=== PATIENT | female | born 1945 | race Asian ===

== ENCOUNTER 2016-09-25 04:19 | Inpatient (IN) | payer MEDICARE ==
[~2016-09-25] VITALS: Ht 152.4 cm; Wt 68.1 kg
[~2016-09-25 04:19] MED LIST: AMLO-511 PO; ASPI-1093 PO; ATOR40TA28 PO; B CO1CAP4 PO; CLOP75 PO; DSS100 PO; FURO40 PO; HYDR-2924 PO; INSLAN SQ; INSNOV SQ; ISOS30TA6 PO; LEVE250T55 PO; PHOSLOC PO; SODI650T PO; VITA1CAP PO
[2016-09-25 04:32] LABS: GLUCOSE,POINT OF CARE 169 MG/DL (70-110)
[2016-09-25] MEDS ORDERED: HydrALAZINE HCL 20 MG/ML VIAL IVP ONE (05:30)
[2016-09-25 05:46] LABS: BASOPHILS # (AUTO) 0.04 K/uL (0.00-0.20); BASOPHILS % (AUTO) 0.2 % (0.0-2.0); EOSINOPHILS # (AUTO) 0.12 K/uL (0.00-0.70); EOSINOPHILS % (AUTO) 0.58 % (1.0-6.0); HEMATOCRIT 33.1 % (36-46); HEMOGLOBIN 10.8 g/dL (12.0-16.0); LYMPHOCYTES # (AUTO) 1.8 K/uL (1.0-4.8); LYMPHOCYTES % (AUTO) 8.8 % (22.0-44.0); MEAN CORPUSCULAR HEMOGLOBIN 29.1 pg (26.0-34.0); MEAN CORPUSCULAR HGB CONC 32.8 G/dL (31.0-37.0); MEAN CORPUSCULAR VOLUME 89 fL (80-100); MONOCYTES % (AUTO) 4.9 % (2.0-9.0); NEUTROPHILS # (AUTO) 17.2 K/uL (1.8-7.7); PLATELET COUNT (AUTO) 170 K/uL (150-450); RED BLOOD CELL COUNT(AUTO) 3.72 MIL/uL (4.00-5.20); RED CELL DISTRIBUTION WIDTH 15.5 % (11.5-14.5); WHITE BLOOD COUNT (AUTO) 20.2 K/uL (4.5-11.0)
[2016-09-25 05:48] LABS: NEUTROPHILS % (AUTO) 85.5 % (40.0-70.0)
[2016-09-25 05:56] LABS: PROTHROMBIN TIME 10.2 SEC (9.4-11.6)
[2016-09-25 05:58] LABS: ANION GAP 12 mmol/L (8-16); CALCIUM, TOTAL 9.7 mg/dL (8.8-10.5); CARBON DIOXIDE 26 mmol/L (22-29); CHLORIDE 101 mmol/L (98-107); CREATININE 6.96 mg/dL (0.60-1.30); GLOMERULAR FILTR. RATE CALC 6 mL/min (>60); POTASSIUM 5.2 mmol/L (3.5-5.1); SODIUM SERUM 139 mmol/L (136-145); UREA NITROGEN, BLOOD 76 mg/dL (7-18)
[2016-09-25 06:04] LABS: ALANINE AMINOTRANSFERASE 22 U/L (12-78); ALBUMIN 3.6 g/dL (3.4-5.0); ASPARTATE AMINOTRANSFERASE 15 U/L (15-37); BILIRUBIN,TOTAL 0.2 mg/dL (0.1-1.0); CREATINE KINASE, TOTAL 49 U/L (26-192); TOTAL PROTEIN, SERUM 7.5 g/dL (6.4-8.2)
[2016-09-25 06:06] LABS: B-TYPE NATRIURETIC PEPTIDE 1170 pg/mL (0-100)
[2016-09-25 07:22] LABS: GLUCOSE,POINT OF CARE 171 MG/DL (70-110)
[2016-09-25] MEDS ORDERED: ACETAMINOPHEN 325 MG TABLET PO PRN (08:15)
[2016-09-25] MEDS ORDERED: DEXTROSE 50%-WATER 25 GM/50 ML SYRINGE IVP PRN (08:15)
[2016-09-25] MEDS ORDERED: BISACODYL 10 MG RECTAL RECTAL SUPPOSITORY PR PRN (08:15)
[2016-09-25] MEDS ORDERED: CloNIDine HCL 0.1 MG TABLET PO PRN (08:15)
[2016-09-25] MEDS ORDERED: ALBUTEROL SULFATE 2.5 MG/0.5 ML NEB SOLUTION NEB PRN (08:15)
[2016-09-25] MEDS: PANTOPRAZOLE SODIUM 40 MG DR TABLET PO SCH (08:18)
[2016-09-25] MEDS: VITAMIN B COMP/VIT C/FOLIC ACID CAPSULE PO SCH (08:21)
[2016-09-25] MEDS: AmLODIPine BESYLATE 10 MG TABLET PO SCH (08:21)
[2016-09-25] MEDS: LevETIRAcetam 250 MG TABLET PO SCH (08:24)
[2016-09-25] MEDS: HEPARIN SODIUM,PORCINE 5,000 UNITS/ML VIAL SQ SCH ×2 (08:26→20:30)
[2016-09-25] MEDS: INSULIN ASPART 100 UNITS/ML SQ PRN ×4 (08:27→21:41)
[2016-09-25] MEDS: ASPIRIN 81 MG CHEWABLE TABLET PO SCH (08:31)
[2016-09-25 09:03] VITALS: BP 190/83
[2016-09-25] MEDS: DOCUSATE SODIUM 100 MG CAPSULE PO SCH ×2 (10:24→20:29)
[2016-09-25 11:32] VITALS: BP 113/49
[2016-09-25] MEDS ORDERED: VANCOMYCIN HCL 1 GM/D5% WATER 200 ML IV ONE (12:45)
[2016-09-25] MEDS ORDERED: PIPERACILLIN SODIUM/TAZOBACTAM 0.75 GM in DEXTROSE 5%-WATER 50 ML IV PRN (13:15)
[2016-09-25] MEDS ORDERED: SODIUM CHLORIDE 0.9% 100 ML ONE (13:53)
[2016-09-25] MEDS: PIPERACILLIN SODIUM/TAZOBACTAM 2.25 GM in DEXTROSE 5%-WATER 50 ML IV SCH ×2 (14:16→20:30)
[2016-09-25 15:51] VITALS: BP 128/60
[2016-09-25] MEDS ORDERED: LIDOCAINE HCL/PF 1% 2 ML VIAL IM ONE (16:56)
[2016-09-25] MEDS: OxyCODONE HCL/ACETAMINOPHEN 5-325 MG TABLET PO PRN (19:30)
[2016-09-25 20:11] VITALS: BP 179/76
[2016-09-25] MEDS: ATORVASTATIN CALCIUM 20 MG TABLET PO SCH (20:29)
[2016-09-26] VITALS (7 sets, daily range): BP systolic 120–156; BP diastolic 45–63
[2016-09-26] MEDS: PIPERACILLIN SODIUM/TAZOBACTAM 2.25 GM in DEXTROSE 5%-WATER 50 ML IV SCH ×3 (05:28→20:50)
[2016-09-26] MEDS ORDERED: SODIUM CHLORIDE 0.9% 250 ML IV ONE (05:38)
[2016-09-26 06:28] LABS: BASOPHILS % (AUTO) 0.7 % (0.0-2.0); EOSINOPHILS % (AUTO) 2.4 % (1.0-6.0); HEMATOCRIT 32.5 % (36-46); HEMOGLOBIN 10.5 g/dL (12.0-16.0); LYMPHOCYTES # (AUTO) 1.9 K/uL (1.0-4.8); LYMPHOCYTES % (AUTO) 18.9 % (22.0-44.0); MEAN CORPUSCULAR HEMOGLOBIN 28.4 pg (26.0-34.0); MEAN CORPUSCULAR HGB CONC 32.3 G/dL (31.0-37.0); MEAN CORPUSCULAR VOLUME 88 fL (80-100); MONOCYTES # (AUTO) 0.8 K/uL (0.1-1.0); MONOCYTES % (AUTO) 7.8 % (2.0-9.0); NEUTROPHILS # (AUTO) 7.2 K/uL (1.8-7.7); NEUTROPHILS % (AUTO) 70.2 % (40.0-70.0); PLATELET COUNT (AUTO) 160 K/uL (150-450); RED CELL DISTRIBUTION WIDTH 15.4 % (11.5-14.5); WHITE BLOOD COUNT (AUTO) 10.3 K/uL (4.5-11.0)
[2016-09-26 06:42] LABS: CALCIUM, TOTAL 8.9 mg/dL (8.8-10.5); CREATININE 4.46 mg/dL (0.60-1.30); MAGNESIUM 1.8 mg/dL (1.80-2.40); PHOSPHORUS 4.7 mg/dL (2.5-4.9); POTASSIUM 4.5 mmol/L (3.5-5.1)
[2016-09-26 06:57] LABS: GLUCOSE,POINT OF CARE 124 MG/DL (70-110)
[2016-09-26 08:02] LABS: HEMOGLOBIN A1C 7.3 % (4.5-6.2)
[2016-09-26] MEDS ORDERED: VANCOMYCIN HCL 1 GM/D5% WATER 200 ML IV PRN (08:15)
[2016-09-26] MEDS: DOCUSATE SODIUM 100 MG CAPSULE PO SCH ×2 (08:38→20:49)
[2016-09-26] MEDS: PANTOPRAZOLE SODIUM 40 MG DR TABLET PO SCH (08:38)
[2016-09-26] MEDS: OxyCODONE HCL/ACETAMINOPHEN 5-325 MG TABLET PO PRN (08:38)
[2016-09-26] MEDS: AmLODIPine BESYLATE 10 MG TABLET PO SCH (08:38)
[2016-09-26] MEDS: HEPARIN SODIUM,PORCINE 5,000 UNITS/ML VIAL SQ SCH ×2 (08:38→20:50)
[2016-09-26] MEDS: LevETIRAcetam 250 MG TABLET PO SCH (08:38)
[2016-09-26] MEDS: VITAMIN B COMP/VIT C/FOLIC ACID CAPSULE PO SCH (08:38)
[2016-09-26] MEDS: ASPIRIN 81 MG CHEWABLE TABLET PO SCH (08:38)
[2016-09-26] MEDS ORDERED: VANCOMYCIN HCL 1 GM/D5% WATER 200 ML IV ONE (09:00)
[2016-09-26] MEDS: INSULIN ASPART 100 UNITS/ML SQ PRN ×3 (12:20→21:10)
[2016-09-26] MEDS: ATORVASTATIN CALCIUM 20 MG TABLET PO SCH (20:50)
[2016-09-27 04:22] VITALS: BP 142/56
[2016-09-27] MEDS: PIPERACILLIN SODIUM/TAZOBACTAM 2.25 GM in DEXTROSE 5%-WATER 50 ML IV SCH ×3 (05:15→21:13)
[2016-09-27 06:38] LABS: BASOPHILS # (AUTO) 0.07 K/uL (0.00-0.20); BASOPHILS % (AUTO) 0.7 % (0.0-2.0); EOSINOPHILS # (AUTO) 0.34 K/uL (0.00-0.70); EOSINOPHILS % (AUTO) 3.17 % (1.0-6.0); HEMATOCRIT 29.6 % (36-46); HEMOGLOBIN 9.6 g/dL (12.0-16.0); LYMPHOCYTES # (AUTO) 1.9 K/uL (1.0-4.8); LYMPHOCYTES % (AUTO) 17.9 % (22.0-44.0); MEAN CORPUSCULAR HEMOGLOBIN 29.2 pg (26.0-34.0); MEAN CORPUSCULAR HGB CONC 32.6 G/dL (31.0-37.0); MEAN CORPUSCULAR VOLUME 90 fL (80-100); MONOCYTES # (AUTO) 1.1 K/uL (0.1-1.0); MONOCYTES % (AUTO) 10.3 % (2.0-9.0); NEUTROPHILS # (AUTO) 7.2 K/uL (1.8-7.7); NEUTROPHILS % (AUTO) 67.9 % (40.0-70.0); PLATELET COUNT (AUTO) 156 K/uL (150-450); RED CELL DISTRIBUTION WIDTH 14.7 % (11.5-14.5); WHITE BLOOD COUNT (AUTO) 10.6 K/uL (4.5-11.0)
[2016-09-27 07:11] LABS: CALCIUM, TOTAL 8.6 mg/dL (8.8-10.5); CREATININE 6.32 mg/dL (0.60-1.30); POTASSIUM 5.3 mmol/L (3.5-5.1)
[2016-09-27 07:30] VITALS: BP 132/60
[2016-09-27] MEDS ORDERED: SODIUM CHLORIDE 0.9% 2,000 ML IV ONE (08:34)
[2016-09-27] MEDS: AmLODIPine BESYLATE 10 MG TABLET PO SCH (09:00)
[2016-09-27] MEDS: HEPARIN SODIUM,PORCINE 5,000 UNITS/ML VIAL SQ SCH ×2 (09:00→21:00)
[2016-09-27 11:47] VITALS: BP 130/66
[2016-09-27] MEDS ORDERED: MANNITOL 25%-12.5 GM/50 ML VIAL IVP PRN (12:00)
[2016-09-27] MEDS ORDERED: ALBUMIN HUMAN 25%-12.5GM/50ML IV BOTTLE IV PRN (12:00)
[2016-09-27] MEDS ORDERED: LIDOCAINE HCL/PF 1% 2 ML VIAL ID PRN (12:00)
[2016-09-27] MEDS: PANTOPRAZOLE SODIUM 40 MG DR TABLET PO SCH (12:55)
[2016-09-27] MEDS: DOCUSATE SODIUM 100 MG CAPSULE PO SCH ×2 (12:55→21:00)
[2016-09-27] MEDS: ASPIRIN 81 MG CHEWABLE TABLET PO SCH (12:55)
[2016-09-27] MEDS: VITAMIN B COMP/VIT C/FOLIC ACID CAPSULE PO SCH (12:56)
[2016-09-27] MEDS: LevETIRAcetam 250 MG TABLET PO SCH (12:56)
[2016-09-27] MEDS: INSULIN ASPART 100 UNITS/ML SQ PRN ×3 (12:58→21:06)
[2016-09-27 15:41] VITALS: BP 126/58
[2016-09-27] MEDS ORDERED: LIDOCAINE HCL/PF 1% 2 ML VIAL IM ONE (17:18)
[2016-09-27 19:57] VITALS: BP 129/52
[2016-09-27] MEDS: ATORVASTATIN CALCIUM 20 MG TABLET PO SCH (20:59)
[2016-09-28 00:33] VITALS: BP 143/44
[2016-09-28 05:16] VITALS: BP 141/49
[2016-09-28] MEDS: PIPERACILLIN SODIUM/TAZOBACTAM 2.25 GM in DEXTROSE 5%-WATER 50 ML IV SCH ×2 (06:02→12:34)
[2016-09-28] MEDS: INSULIN ASPART 100 UNITS/ML SQ PRN ×2 (06:26→12:06)
[2016-09-28 07:36] VITALS: BP 138/53
[2016-09-28] MEDS ORDERED: SODIUM POLYSTYRENE SULFONATE 15 GM/60 ML SUSPENSION BOTTLE PO ONE (08:30)
[2016-09-28] MEDS: AmLODIPine BESYLATE 10 MG TABLET PO SCH (08:38)
[2016-09-28] MEDS: LevETIRAcetam 250 MG TABLET PO SCH (08:39)
[2016-09-28] MEDS: VITAMIN B COMP/VIT C/FOLIC ACID CAPSULE PO SCH (08:39)
[2016-09-28] MEDS: HEPARIN SODIUM,PORCINE 5,000 UNITS/ML VIAL SQ SCH (08:39)
[2016-09-28] MEDS: DOCUSATE SODIUM 100 MG CAPSULE PO SCH (08:39)
[2016-09-28] MEDS: PANTOPRAZOLE SODIUM 40 MG DR TABLET PO SCH (08:39)
[2016-09-28] MEDS: ASPIRIN 81 MG CHEWABLE TABLET PO SCH (08:40)
[2016-09-28] MEDS ORDERED: LEVO250 PO (10:52)
[2016-09-28 11:26] VITALS: BP 121/42
[2016-09-28 11:38] LABS: GLUCOSE COMMENT 1 Received Meds; GLUCOSE,POINT OF CARE 204 MG/DL (70-110)
[2016-09-28 14:22] LABS: GLUCOSE,POINT OF CARE 172 MG/DL (70-110)
[2016-09-28 14:23] LABS: GLUCOSE,POINT OF CARE 172 MG/DL (70-110)
[2016-09-29 13:27] LABS: HEPATITIS Bs ANTIGEN SCREEN P Confirm. indicated (Negative)
[2016-09-30 21:48] LABS: GLUCOSE,POINT OF CARE 153 MG/DL (70-110)
[2016-09-30 21:48] LABS: GLUCOSE COMMENT 1 Received Meds; GLUCOSE,POINT OF CARE 184 MG/DL (70-110)
[2016-09-30 21:53] LABS: GLUCOSE COMMENT 1 Received Meds; GLUCOSE,POINT OF CARE 144 MG/DL (70-110)
[2016-09-30 22:12] LABS: GLUCOSE COMMENT 1 Received Meds; GLUCOSE,POINT OF CARE 180 MG/DL (70-110)
[2016-09-30 22:17] LABS: GLUCOSE,POINT OF CARE 165 MG/DL (70-110)
[2016-09-30 22:18] LABS: GLUCOSE COMMENT 1 Received Meds; GLUCOSE,POINT OF CARE 144 MG/DL (70-110)
[2016-09-30 22:18] LABS: GLUCOSE COMMENT 1 Received Meds; GLUCOSE,POINT OF CARE 140 MG/DL (70-110)
[2016-09-30 22:18] LABS: GLUCOSE COMMENT 1 Received Meds; GLUCOSE,POINT OF CARE 232 MG/DL (70-110)
== END 2016-09-28 15:15 | disposition home or self-care (01) | DRG 291 ==
LOC: EMS 04:21 → 5S 07:35
PROVIDERS: ADMIT Internal Medicine; ATTEND Internal Medicine
PROC: 5A1D60Z (ICD-10-PCS; principal; 2016-09-25)
DX: I13.2 Hypertensive heart and chronic kidney disease with heart failure and with stage 5 chronic kidney disease, or end stage renal disease (principal); J18.9 Pneumonia, unspecified organism; N18.6 End stage renal disease; E11.22 Type 2 diabetes mellitus with diabetic chronic kidney disease; J45.909 Unspecified asthma, uncomplicated; I25.10 Atherosclerotic heart disease of native coronary artery without angina pectoris; G40.909 Epilepsy, unspecified, not intractable, without status epilepticus; D72.829 Elevated white blood cell count, unspecified; E87.5 Hyperkalemia; D63.8 Anemia in other chronic diseases classified elsewhere; I50.9 Heart failure, unspecified; Z99.2 Dependence on renal dialysis; Z86.73 Personal history of transient ischemic attack (TIA), and cerebral infarction without residual deficits; Z79.4 Long term (current) use of insulin; Z79.82 Long term (current) use of aspirin; Z79.899 Other long term (current) drug therapy; Z79.01 Long term (current) use of anticoagulants
CPT/HCPCS: 82962; 83036; 83735; 84100; 86709; 87040; 87081; 87340; 90935; 93005; 96374; 97162; 97166; 97530; 99285; J0360; J1644; J1815; J2543; J3370; J3490; J7030; J7050; J7060

== ENCOUNTER → 2017-03-27 | Outpatient (CLI) | payer MEDICARE, OTHER ==
[~2017-03-27] MED LIST changes: -ASPI-1093 PO; +ASPI-1182 PO; -FURO40 PO; +LEVO250 PO
[2017-03-27 16:19] LABS: HEMOGLOBIN A1C 5.7 % (4.5-6.2)
[2017-03-27 16:21] LABS: BASOPHILS # (AUTO) 0.04 K/uL (0.00-0.20); BASOPHILS % (AUTO) 0.7 % (0.0-2.0); EOSINOPHILS # (AUTO) 0.15 K/uL (0.00-0.70); EOSINOPHILS % (AUTO) 2.29 % (1.0-6.0); HEMATOCRIT 38.2 % (36-46); HEMOGLOBIN 12.4 g/dL (12.0-16.0); LYMPHOCYTES # (AUTO) 1.1 K/uL (1.0-4.8); LYMPHOCYTES % (AUTO) 16.4 % (22.0-44.0); MEAN CORPUSCULAR HEMOGLOBIN 29.4 pg (26.0-34.0); MEAN CORPUSCULAR HGB CONC 32.3 G/dL (31.0-37.0); MEAN CORPUSCULAR VOLUME 91 fL (80-100); MONOCYTES # (AUTO) 0.6 K/uL (0.1-1.0); MONOCYTES % (AUTO) 8.9 % (2.0-9.0); NEUTROPHILS # (AUTO) 4.8 K/uL (1.8-7.7); NEUTROPHILS % (AUTO) 71.7 % (40.0-70.0); PLATELET COUNT (AUTO) 179 K/uL (150-450); RED CELL DISTRIBUTION WIDTH 17.7 % (11.5-14.5)
[2017-03-27 16:36] LABS: ALBUMIN 3.6 g/dL (3.4-5.0); BILIRUBIN,TOTAL 0.3 mg/dL (0.1-1.0); CALCIUM, TOTAL 8.4 mg/dL (8.8-10.5); CHOL/HDL RATIO 2.3 (3.9-5.7); CREATININE 6.14 mg/dL (0.60-1.30); POTASSIUM 5.5 mmol/L (3.5-5.1); THYROID STIMULATING HORMONE 1.05 uIU/mL (0.36-3.74); TOTAL PROTEIN, SERUM 7.1 g/dL (6.4-8.2)
== END | disposition home or self-care (01) ==
LOC: LABPV 15:16
PROVIDERS: ATTEND Internal Medicine
DX: E11.69 Type 2 diabetes mellitus with other specified complication (principal); E78.5 Hyperlipidemia, unspecified; I51.7 Cardiomegaly; J98.4 Other disorders of lung; I70.0 Atherosclerosis of aorta; R91.8 Other nonspecific abnormal finding of lung field; Z79.899 Other long term (current) drug therapy
CPT/HCPCS: 71020; 83036; 84443